=== PATIENT | male | born 1990 | race Caucasian/White ===

== ENCOUNTER 2023-08-24 23:09 | Emergency (ER) | payer OTHER ==
[~2023-08-24] VITALS: Ht 170.2 cm; Wt 104.5 kg
[~2023-08-24 23:09] MED LIST: NOCURR
[2023-08-24 23:27] VITALS: BP 134/88; PULSE 102; RESP 16; TEMP 98.2
[2023-08-25] MEDS ORDERED: AMOX250C4 PO (03:04)
== END 2023-08-25 03:16 | disposition home or self-care (01) ==
LOC: EMS 23:22
DX: L03.012 Cellulitis of left finger (principal)
CPT/HCPCS: 99283; Z7502